=== PATIENT | female | born 1990 | race African-American/Black ===

== ENCOUNTER 2017-01-29 06:27 | Emergency (ER) | payer OTHER ==
[~2017-01-29] VITALS: Ht 160 cm; Wt 120.7 kg
[~2017-01-29 06:27] MED LIST: ACET-1600 PO; ACET325T14 PO; IBUP-1222 PO; NITR100C56 PO; NITR100C57 PO; OXYC-302 PO; PNV1TABL11 PO; PNV51CAP2 PO
[2017-01-29] MEDS ORDERED: SODIUM CHLORIDE 0.9% 1,000ML IVBOLUS ONE (08:00)
[2017-01-29] MEDS ORDERED: DIPHENHYDRAMINE 50 MG/ML, 1ML IVPush ONE (08:00)
[2017-01-29] MEDS ORDERED: METOCLOPRAMIDE 5 MG/ML, 2ML IVPush ONE (08:00)
[2017-01-29] MEDS ORDERED: IBUP800T PO (08:05)
[2017-01-29] MEDS ORDERED: ASPI1TAB30 PO (08:06)
[2017-01-29] MEDS ORDERED: METOCLOPRAMIDE 5 MG/ML, 2ML ONE (08:11)
[2017-01-29] MEDS ORDERED: DIPHENHYDRAMINE 50 MG/ML, 1ML ONE (08:11)
[2017-01-29] MEDS ORDERED: KETOROLAC 30 MG/1 ML ONE (08:54)
[2017-01-29] MEDS ORDERED: KETOROLAC 30 MG/1 ML IVPush ONE (09:00)
[2017-01-29 09:36] VITALS: BP 103/59
== END 2017-01-29 10:02 | disposition home or self-care (01) ==
LOC: ED 08:42
DX: R51 Headache (principal)
CPT/HCPCS: 70450; 96361; 96374; 96375; 99285; J1200; J1885; J2765; J7030

== ENCOUNTER 2017-08-20 02:38 | Emergency (ER) | payer OTHER ==
[~2017-08-20] VITALS: Ht 160 cm; Wt 113.7 kg
[~2017-08-20 02:38] MED LIST changes: +ASPI1TAB31 PO; +IBUP-1223 PO
[2017-08-20] MEDS ORDERED: KETOROLAC 30 MG/1 ML IM ONE (05:30)
[2017-08-20] MEDS ORDERED: HYDROcodone/APAP 5/325 TABLET PO ONE (05:30)
[2017-08-20] MEDS ORDERED: HYDROcodone/APAP 5/325 TABLET ONE (05:41)
[2017-08-20] MEDS ORDERED: KETOROLAC 30 MG/1 ML ONE (05:41)
[2017-08-20 06:14] VITALS: BP 134/91
== END 2017-08-20 06:17 | disposition home or self-care (01) ==
LOC: ED 06:03
DX: N30.90 Cystitis, unspecified without hematuria (principal); M54.12 Radiculopathy, cervical region; G43.909 Migraine, unspecified, not intractable, without status migrainosus; Z88.0 Allergy status to penicillin
CPT/HCPCS: 72125; 81001; 87086; 93005; 96372; 99285; J1885; J7512

== ENCOUNTER 2017-09-25 04:16 | Emergency (ER) | payer OTHER ==
[~2017-09-25] VITALS: Ht 160 cm; Wt 110.0 kg
[2017-09-25] MEDS ORDERED: DIAZ2TAB PO (04:24)
[2017-09-25] MEDS ORDERED: SODIUM CHLORIDE 0.9% 1,000ML IVBOLUS ONE (05:30)
[2017-09-25] MEDS ORDERED: SODIUM CHLORIDE FLUSH 10ML SYR IVF ONE (05:30)
[2017-09-25] MEDS ORDERED: ONDANSETRON 2MG/ML, 2ML IVPush ONE (05:30)
[2017-09-25] MEDS ORDERED: MORPHINE SULFATE 4 MG/ML, 1ML IVPush PRN (05:30)
[2017-09-25 06:25] LABS: HCG UR SG 1.012 (1.003-1.030); MICROSCOPIC AUTO
[2017-09-25 06:58] LABS: ALBUMIN 4.1 g/dL (3.4-5.0); ANION GAP 5 mmol/L (5-15); CALCIUM 9.3 mg/dL (8.5-10.1); CHLORIDE 109 mmol/L (98-107)
[2017-09-25] MEDS ORDERED: HYDROcodone/APAP 5/325 TABLET PO ONE (07:30)
[2017-09-25] MEDS ORDERED: ONDANSETRON ODT 4 MG PO ONE (07:30)
[2017-09-25 07:49] LABS: BASOPHILS # (AUTO) 0.07 x10^3/uL (0-0.1); BASOPHILS % (AUTO) 1 % (0-1); EOSINOPHILS % (AUTO) 2 % (1-7); LYMPHOCYTES # (AUTO) 3.94 x10^3/uL (1-3.4); LYMPHOCYTES % (AUTO) 41 % (22-44); MD NO; MEAN CORPUSCULAR HEMOGLOBIN 28.5 pg (27.0-34.8); MEAN CORPUSCULAR HGB CONC 33.8 g/dL (32.4-35.8); MEAN CORPUSCULAR VOLUME 84.2 fL (80-100); MEAN PLATELET VOLUME 8.3 fL (7.4-10.4); MONOCYTES # (AUTO) 0.62 x10^3/uL (0.2-0.8); MONOCYTES % (AUTO) 7 % (2-9); NEUTROPHILS # (AUTO) 4.76 x10^3/uL (1.8-6.8); NEUTROPHILS % (AUTO) 50 % (42-75); PLATELET COUNT 291 x10^3/uL (130-400); RED BLOOD COUNT 4.35 x10^6/uL (3.82-5.3); RED CELL DISTRIBUTION WIDTH 14.6 % (9.6-15.2)
[2017-09-25] MEDS ORDERED: HYDROcodone/APAP 5/325 TABLET ONE (07:54)
[2017-09-25] MEDS ORDERED: ONDANSETRON ODT 4 MG ONE (07:54)
[2017-09-25] MEDS ORDERED: KETOROLAC 30 MG/1 ML ONE (07:55)
[2017-09-25] MEDS ORDERED: KETOROLAC 30 MG/1 ML IVPush ONE (08:00)
[2017-09-25 08:42] VITALS: BP 122/67
== END 2017-09-25 08:45 | disposition home or self-care (01) ==
LOC: ED 08:33
DX: R55 Syncope and collapse (principal); G43.909 Migraine, unspecified, not intractable, without status migrainosus
CPT/HCPCS: 36415; 70450; 80048; 81001; 81025; 82040; 85025; 93005; 96361; 96374; 99285; J1885; J7030; Q0162

== ENCOUNTER 2017-11-27 12:42 | Emergency (ER) | payer OTHER ==
[~2017-11-27] VITALS: Ht 160 cm; Wt 110.0 kg
[~2017-11-27 12:42] MED LIST changes: +DIAZ2TAB PO
[2017-11-27 13:47] LABS: BASOPHILS # (AUTO) 0.05 x10^3/uL (0-0.1); BASOPHILS % (AUTO) 1 % (0-1); EOSINOPHILS # (AUTO) 0.19 x10^3/uL (0-0.4); EOSINOPHILS % (AUTO) 3 % (1-7); LYMPHOCYTES # (AUTO) 3.04 x10^3/uL (1-3.4); LYMPHOCYTES % (AUTO) 51 % (22-44); MD NO; MEAN CORPUSCULAR HEMOGLOBIN 28.7 pg (27.0-34.8); MEAN CORPUSCULAR VOLUME 84.4 fL (80-100); MEAN PLATELET VOLUME 8.9 fL (7.4-10.4); MONOCYTES % (AUTO) 7 % (2-9); NEUTROPHILS # (AUTO) 2.26 x10^3/uL (1.8-6.8); NEUTROPHILS % (AUTO) 38 % (42-75); PLATELET COUNT 294 x10^3/uL (130-400); RED CELL DISTRIBUTION WIDTH 14.1 % (9.6-15.2)
[2017-11-27 14:00] LABS: ALBUMIN 3.5 g/dL (3.4-5.0); ANION GAP 8 mmol/L (5-15); CALCIUM 8.8 mg/dL (8.5-10.1); CHLORIDE 109 mmol/L (98-107); CREATININE 0.81 mg/dL (0.55-1.02)
[2017-11-27 14:51] VITALS: BP 118/72
== END 2017-11-27 14:53 | disposition home or self-care (01) ==
LOC: ED 14:50
DX: R06.00 Dyspnea, unspecified (principal)
CPT/HCPCS: 36415; 71046; 80048; 82040; 82375; 85025; 93005; 99285

== ENCOUNTER 2018-02-20 19:06 | Emergency (ER) | payer OTHER ==
[~2018-02-20] VITALS: Ht 160 cm; Wt 104.2 kg
[2018-02-20 19:12] VITALS: BP 150/90
[2018-02-20] MEDS ORDERED: IBUPROFEN 200 MG TABLET PO ONE (19:30)
[2018-02-20] MEDS ORDERED: IBUPROFEN 200 MG TABLET ONE (19:39)
== END 2018-02-20 20:36 | disposition home or self-care (01) ==
LOC: ED 20:15
DX: M25.571 Pain in right ankle and joints of right foot (principal); M77.51 Other enthesopathy of right foot and ankle; G43.909 Migraine, unspecified, not intractable, without status migrainosus; E66.9 Obesity, unspecified
CPT/HCPCS: 99284